=== PATIENT | male | born 1935 | race Two or more races ===

== ENCOUNTER 2019-11-04 02:55 | Inpatient (IN) | payer OTHER ==
[~2019-11-04] VITALS: Ht 167.6 cm; Wt 99.0 kg
[2019-11-04 03:58] LABS: Basophils # (auto) 0.1 10 ^3/uL (0-0.2); Eosinophils # (auto) 0.1 10 ^3/uL (0-0.8); Hematocrit 43.9 % (41.0-53.0); Hemoglobin 13.8 g/dL (13.5-17.5); Monocytes # (auto) 1.6 10 ^3/uL (0-1.3); Nucleated Red Blood Cells % 0.1 %
[2019-11-04 04:00] LABS: Basophils % (auto) 0.4 % (0.0-2.0); Eosinophils % (auto) 0.6 % (0.0-7.0); Lymphocytes # (auto) 1.5 10 ^3/uL (0.4-5.4); Lymphocytes % (auto) 8.4 % (10.0-50.0); Mean Corpuscular Hgb Conc. 31.4 g/dL (32.0-36.0); Mean Corpuscular Volume 82.7 fL (80.0-100.0); Monocytes % (auto) 9.1 % (0.0-12.0); Neutrophils # (auto) 14.7 10 ^3/uL (1.6-8.6); Neutrophils % (auto) 81.5 % (37.0-80.0); Platelet Count (auto) 256 10^3/uL (140-450); Red Blood Cells 5.31 10^6/uL (4.5-5.90); Red Cell Distribution Width 16.2 % (11.8-14.3); White Blood Cell 18.1 10^3/uL (4.4-10.8)
[2019-11-04 04:03] LABS: Amylase 44 U/L (25-115); Anion Gap 6 (5-15); BUN/Creatinine Ratio 16.1; Blood Urea Nitrogen 18 mg/dL (7-18); Calcium 8.9 mg/dL (8.5-10.1); Carbon Dioxide 29 mmol/L (21-32); Chloride 104 mmol/L (98-107); GFR African American 80 mL/min; GFR Non-African American 66 mL/min; Glucose 167 mg/dL (74-106); Lipase 76 U/L (73-393); Magnesium 2.1 mg/dL (1.6-2.6); Potassium 4.1 mmol/L (3.5-5.1); Sodium 139 mmol/L (136-145)
[2019-11-04] MEDS ORDERED: ONDANSETRON HCL 4 MG/2 ML VIAL IV ONE (06:30)
[2019-11-04] MEDS ORDERED: SODIUM CHLORIDE 0.9% 1,000 ML IV ONE (08:16)
[2019-11-04] MEDS ORDERED: SODIUM CHLORIDE 0.9% 500 ML IVB ONE (08:16)
[2019-11-04] MEDS ORDERED: PROMETHAZINE HCL 25 MG/ML 1ML IV PRN (08:30)
[2019-11-04] MEDS ORDERED: HYDROmorphone HCL 2 MG/ML VL IV ONE (08:30)
[2019-11-04 09:26] LABS: Urine Bacteria NONE SEEN /hpf (None Seen); Urine Blood Negative /uL (Negative); Urine Mucus FEW (None Seen); Urine Specific Gravity 1.028 (1.001-1.035); Urine WBC <1 /hpf (0 - 3)
[2019-11-04] MEDS ORDERED: SPIRONOLACTONE 25 MG TAB PO ONE (10:15)
[2019-11-04] MEDS ORDERED: FUROSEMIDE 40 MG/4 ML VIAL IV ONE (10:15)
[2019-11-04] MEDS ORDERED: MORPHINE SULF INJ 2 MG/ML SYRINGE 1ML IV PRN ×3 (10:45)
[2019-11-04] MEDS ORDERED: NITROGLYCERIN 0.4 MG SL TAB SL PRN (10:45)
[2019-11-04] MEDS ORDERED: ALBUTEROL SULF 2.5 MG/0.5ML(0.5%) NEB SOLN NEB PRN (10:45)
[2019-11-04] MEDS ORDERED: DEXTROSE (50%) 50ML SYRG IV PRN (10:45)
[2019-11-04] MEDS ORDERED: FAMOTIDINE (10MG/ML) 2ML VL IV SCH (10:45)
[2019-11-04] MEDS ORDERED: ONDANSETRON HCL 4 MG/2 ML VIAL IV PRN (10:45)
[2019-11-04] MEDS ORDERED: PIPERACILLIN-TAZOB 3.375GM 100 ML IV ONE (11:00)
[2019-11-04] MEDS ORDERED: methylPREDNISolone SOD SUCC 40 MG/ML VL IV SCH (11:30)
[2019-11-04 11:50] LABS: Amylase 43 U/L (25-115); Lipase 80 U/L (73-393)
[2019-11-04] MEDS: SODIUM CHLORIDE 0.9% 1,000 ML IV SCH ×2 (11:52→20:40)
[2019-11-04] MEDS: ACCU-CHEK COMFORT CURVE STRIP VI SCH ×2 (12:00→17:44)
[2019-11-04] MEDS ORDERED: HYDROCORTISONE SOD SUCC 100 MG/2ML INJ VIAL IV ONE (12:30)
[2019-11-04 12:51] VITALS: BP 150/85
[2019-11-04] MEDS ORDERED: ALBUTEROL SULF 2.5 MG/0.5ML(0.5%) NEB SOLN NEB SCH (14:00)
[2019-11-04] MEDS ORDERED: IPRATROPIUM BROM 0.5 MG/2.5ML INH SOL NEB SCH (14:00)
[2019-11-04 16:32] VITALS: BP 157/92
[2019-11-04] MEDS ORDERED: BENA20TA14 PO (17:14)
[2019-11-04] MEDS ORDERED: HYDR-4604 PO (17:14)
[2019-11-04] MEDS ORDERED: PANT40T PO (17:14)
[2019-11-04] MEDS ORDERED: DICL50TA4 PO (17:14)
[2019-11-04] MEDS ORDERED: LEVO112T4 PO (17:14)
[2019-11-04] MEDS ORDERED: ROSU5TAB5 PO (17:14)
[2019-11-04] MEDS: PIPERACILLIN-TAZOB 3.375GM 100 ML IV SCH (17:44)
[2019-11-04] MEDS: HYDROCORTISONE SOD SUCC 100 MG/2ML INJ VIAL IV SCH (21:32)
[2019-11-04 22:00] VITALS: BP 147/82
[2019-11-04] MEDS ORDERED: ALBUTEROL SULF HFA 90MCG INH 200DOSE IN SCH (22:00)
[2019-11-05 05:00] VITALS: BP 162/82
[2019-11-05] MEDS: LABETALOL HCL 5 MG/ML 4ML SYRINGE IV PRN (05:32)
[2019-11-05 06:16] LABS: Calcium 7.7 mg/dL (8.5-10.1)
[2019-11-05 06:19] LABS: BUN/Creatinine Ratio 14.8
[2019-11-05 06:22] LABS: Bilirubin, Total 0.8 mg/dL (0.2-1.0); Total Protein 6.4 g/dL (6.4-8.2)
[2019-11-05] MEDS: ACCU-CHEK COMFORT CURVE STRIP VI SCH ×4 (06:27→17:32)
[2019-11-05] MEDS: PIPERACILLIN-TAZOB 3.375GM 100 ML IV SCH ×4 (06:27→17:31)
[2019-11-05] MEDS: HYDROCORTISONE SOD SUCC 100 MG/2ML INJ VIAL IV SCH ×3 (06:27→22:25)
[2019-11-05] MEDS: SODIUM CHLORIDE 0.9% 1,000 ML IV SCH ×2 (07:08→17:16)
[2019-11-05 08:00] VITALS: BP 160/83
[2019-11-05 09:00] VITALS: BP 160/83
[2019-11-05 10:00] LABS: Basophils # (auto) 0 10 ^3/uL (0-0.2); Basophils % (auto) 0.1 % (0.0-2.0); Eosinophils # (auto) 0 10 ^3/uL (0-0.8); Eosinophils % (auto) 0.1 % (0.0-7.0); Monocytes # (auto) 1.4 10 ^3/uL (0-1.3); Nucleated Red Blood Cells % 0.1 %; Red Blood Cells 4.67 10^6/uL (4.5-5.90)
[2019-11-05] MEDS: AZITHROMYCIN 500MG/ 250ML 250 ML IV SCH (10:00)
[2019-11-05] MEDS: PANTOPRAZOLE 40 MG/10 ML VIAL INJ IV SCH (10:00)
[2019-11-05] MEDS: ENOXAPARIN SOD 40 MG/0.4 ML SYRINGE SC SCH (10:00)
[2019-11-05 10:02] LABS: Hematocrit 38.6 % (41.0-53.0); Hemoglobin 12.1 g/dL (13.5-17.5); Lymphocytes # (auto) 0.8 10 ^3/uL (0.4-5.4); Lymphocytes % (auto) 4.6 % (10.0-50.0); Mean Corpuscular Hemoglobin 25.8 pg (28.0-32.0); Mean Corpuscular Hgb Conc. 31.2 g/dL (32.0-36.0); Mean Corpuscular Volume 82.8 fL (80.0-100.0); Monocytes % (auto) 8.6 % (0.0-12.0); Neutrophils # (auto) 14.1 10 ^3/uL (1.6-8.6); Neutrophils % (auto) 86.6 % (37.0-80.0); Platelet Count (auto) 194 10^3/uL (140-450); Red Cell Distribution Width 15.8 % (11.8-14.3); White Blood Cell 16.3 10^3/uL (4.4-10.8)
[2019-11-05] MEDS ORDERED: GASTROGRAFIN 120 ML SOL ONE (10:08)
[2019-11-05 13:00] VITALS: BP 108/53
[2019-11-05 17:00] VITALS: BP 153/84
[2019-11-05 22:00] VITALS: BP 157/77
[2019-11-06] VITALS (7 sets, daily range): BP systolic 140–168; BP diastolic 78–99
[2019-11-06] MEDS: SODIUM CHLORIDE 0.9% 1,000 ML IV SCH (02:40)
[2019-11-06] MEDS: LABETALOL HCL 5 MG/ML 4ML SYRINGE IV PRN (05:17)
[2019-11-06] MEDS: PIPERACILLIN-TAZOB 3.375GM 100 ML IV SCH ×4 (05:55→18:03)
[2019-11-06] MEDS: ACCU-CHEK COMFORT CURVE STRIP VI SCH ×4 (05:55→18:03)
[2019-11-06] MEDS: HYDROCORTISONE SOD SUCC 100 MG/2ML INJ VIAL IV SCH ×2 (05:55→14:22)
[2019-11-06] MEDS: PANTOPRAZOLE 40 MG/10 ML VIAL INJ IV SCH (09:59)
[2019-11-06] MEDS: AZITHROMYCIN 500MG/ 250ML 250 ML IV SCH (09:59)
[2019-11-06] MEDS: ENOXAPARIN SOD 40 MG/0.4 ML SYRINGE SC SCH (10:00)
[2019-11-06 10:21] LABS: Free T4 (Free Thyroxine) 1.27 ng/dL (0.89-1.76)
[2019-11-06 10:22] LABS: Free T3 1.82 pg/mL (2.3-4.2)
[2019-11-06 11:25] LABS: Basophils # (auto) 0 10 ^3/uL (0-0.2); Basophils % (auto) 0.2 % (0.0-2.0); Eosinophils # (auto) 0 10 ^3/uL (0-0.8); Eosinophils % (auto) 0.1 % (0.0-7.0); Lymphocytes # (auto) 0.8 10 ^3/uL (0.4-5.4); Mean Corpuscular Hemoglobin 25.9 pg (28.0-32.0)
[2019-11-06 11:34] LABS: Hematocrit 38.2 % (41.0-53.0); Hemoglobin 11.9 g/dL (13.5-17.5); Lymphocytes % (auto) 6.4 % (10.0-50.0); Mean Corpuscular Hgb Conc. 31.2 g/dL (32.0-36.0); Monocytes % (auto) 8.7 % (0.0-12.0); Neutrophils % (auto) 84.6 % (37.0-80.0); Platelet Count (auto) 212 10^3/uL (140-450); Red Cell Distribution Width 16.3 % (11.8-14.3); White Blood Cell 11.8 10^3/uL (4.4-10.8)
[2019-11-06 11:45] LABS: Calcium 8.1 mg/dL (8.5-10.1); Potassium 3.7 mmol/L (3.5-5.1)
[2019-11-06 11:47] LABS: BUN/Creatinine Ratio 15.3
[2019-11-06] MEDS: cefTRIAXone 1GM/50ML D5W 50 ML IV SCH (23:03)
[2019-11-06] MEDS: metroNIDAZOLE 500MG/100ML 100 ML IV SCH (23:04)
[2019-11-07] MEDS: ACCU-CHEK COMFORT CURVE STRIP VI SCH ×5 (00:59→23:50)
[2019-11-07 05:00] VITALS: BP 144/63
[2019-11-07] MEDS: metroNIDAZOLE 500MG/100ML 100 ML IV SCH ×3 (05:56→22:12)
[2019-11-07 08:00] VITALS: BP 159/83
[2019-11-07] MEDS: cefTRIAXone 1GM/50ML D5W 50 ML IV SCH ×2 (09:09→21:06)
[2019-11-07] MEDS: PANTOPRAZOLE 40 MG/10 ML VIAL INJ IV SCH (09:10)
[2019-11-07] MEDS: HYDROCORTISONE SOD SUCC 100 MG/2ML INJ VIAL IV SCH ×2 (09:10→22:12)
[2019-11-07] MEDS: TAMSULOSIN HYDROCHLORIDE 0.4 MG CAP PO SCH (09:11)
[2019-11-07] MEDS: ENOXAPARIN SOD 40 MG/0.4 ML SYRINGE SC SCH (09:11)
[2019-11-07 09:26] VITALS: BP 159/83
[2019-11-07] MEDS: LABETALOL HCL 5 MG/ML 4ML SYRINGE IV PRN (12:17)
[2019-11-07 13:00] VITALS: BP 188/95
[2019-11-07 16:50] VITALS: BP 133/79
[2019-11-07 22:00] VITALS: BP 149/82
[2019-11-08 04:30] VITALS: BP 164/88
[2019-11-08] MEDS: LABETALOL HCL 5 MG/ML 4ML SYRINGE IV PRN ×2 (04:35→06:43)
[2019-11-08 06:20] LABS: BUN/Creatinine Ratio 14.4; Calcium 8.2 mg/dL (8.5-10.1); Potassium 3.8 mmol/L (3.5-5.1)
[2019-11-08] MEDS: ACCU-CHEK COMFORT CURVE STRIP VI SCH (06:37)
[2019-11-08] MEDS: metroNIDAZOLE 500MG/100ML 100 ML IV SCH (06:37)
[2019-11-08 06:47] LABS: Hematocrit 38.9 % (41.0-53.0); Hemoglobin 12.4 g/dL (13.5-17.5); Mean Corpuscular Hemoglobin 26.3 pg (28.0-32.0); Mean Corpuscular Volume 82.3 fL (80.0-100.0); Platelet Count (auto) 233 10^3/uL (140-450); Red Blood Cells 4.72 10^6/uL (4.5-5.90); Red Cell Distribution Width 15.8 % (11.8-14.3); White Blood Cell 9.9 10^3/uL (4.4-10.8)
[2019-11-08 07:03] LABS: Band Neutrophils % (manual) 0; Basophils % (manual) 0 (0.0-2.0); Blast Cells 0; Eosinophils % (manual) 0 (0-7); Metamyelocytes % 0; Myelocytes % 0; Promyelocytes % 0; Reactive Lymphocytes 0
[2019-11-08 07:38] LABS: Lymphocytes % (manual) 16 (10.0-50.0); Monocytes % (manual) 9 (0-12)
[2019-11-08 08:00] VITALS: BP 159/82
[2019-11-08 09:00] VITALS: BP 159/82
[2019-11-08] MEDS: PANTOPRAZOLE 40 MG/10 ML VIAL INJ IV SCH (11:05)
[2019-11-08] MEDS: TAMSULOSIN HYDROCHLORIDE 0.4 MG CAP PO SCH (11:05)
[2019-11-08] MEDS: HYDROCORTISONE SOD SUCC 100 MG/2ML INJ VIAL IV SCH (11:05)
[2019-11-08] MEDS: cefTRIAXone 1GM/50ML D5W 50 ML IV SCH (11:05)
[2019-11-08] MEDS: ENOXAPARIN SOD 40 MG/0.4 ML SYRINGE SC SCH (11:06)
[2019-11-08] MEDS ORDERED: TAM04C PO (11:32)
[2019-11-08] MEDS ORDERED: AMLO10TA13 PO (11:32)
[2019-11-08] MEDS ORDERED: METR500T PO (11:33)
[2019-11-08 13:00] VITALS: BP 174/76
[2019-11-08 14:29] VITALS: BP 159/82
== END 2019-11-08 15:45 | disposition home or self-care (01) | DRG 389 ==
LOC: ER 02:55 → TELE 05:56 → TELE-EAST 16:30 → TELE-CENTR 18:08
PROVIDERS: ADMIT Internal Medicine; ATTEND Internal Medicine Nephrology
DX: K56.600 Partial intestinal obstruction, unspecified as to cause (principal); J98.11 Atelectasis; R65.10 Systemic inflammatory response syndrome (SIRS) of non-infectious origin without acute organ dysfunction; I16.0 Hypertensive urgency; N20.0 Calculus of kidney; I71.4 Abdominal aortic aneurysm, without rupture; E66.9 Obesity, unspecified; R73.9 Hyperglycemia, unspecified; M51.36 Other intervertebral disc degeneration, lumbar region; D49.7 Neoplasm of unspecified behavior of endocrine glands and other parts of nervous system; E03.9 Hypothyroidism, unspecified; Z20.828 Contact with and (suspected) exposure to other viral communicable diseases; E78.5 Hyperlipidemia, unspecified; I25.10 Atherosclerotic heart disease of native coronary artery without angina pectoris; K57.30 Diverticulosis of large intestine without perforation or abscess without bleeding; M47.816 Spondylosis without myelopathy or radiculopathy, lumbar region; Z87.11 Personal history of peptic ulcer disease; Z87.442 Personal history of urinary calculi; Z95.5 Presence of coronary angioplasty implant and graft; Z68.34 Body mass index [BMI] 34.0-34.9, adult; N32.89 Other specified disorders of bladder
CPT/HCPCS: 36415; 71045; 74176; 74250; 80048; 80053; 81001; 82150; 82962; 83036; 83690; 83735; 83970; 84439; 84443; 84481; 84484; 85007; 85025; 85027; 85652; 87040; 87086; 93005; 94640; 96361; 96365; 96375; C9113; G0378; J0696; J2405; J2543; J3490

== ENCOUNTER 2021-05-24 19:48 | Emergency (ER) | payer OTHER ==
[~2021-05-24] VITALS: Ht 167.6 cm; Wt 95.3 kg
[~2021-05-24 19:48] MED LIST: AMLO-496 PO; BENA20TA14 PO; HYDR-4622 PO; LEVO112T4 PO; METR500T PO; PANT40T PO; ROSU5TAB5 PO; TAM04C PO
[2021-05-24 19:50] VITALS: BP 193/91
[2021-05-24 22:11] LABS: Basophils # (auto) 0 10 ^3/uL (0-0.2); Basophils % (auto) 0.4 % (0.0-2.0); Eosinophils # (auto) 0 10 ^3/uL (0-0.8); Eosinophils % (auto) 0.4 % (0.0-7.0); Hematocrit 42.7 % (41.0-53.0); Hemoglobin 14.1 g/dL (13.5-17.5); Lymphocytes % (auto) 13.4 % (10.0-50.0); Mean Corpuscular Hemoglobin 29.1 pg (28.0-32.0); Monocytes # (auto) 1.3 10 ^3/uL (0-1.3); Monocytes % (auto) 17.6 % (0.0-12.0); Neutrophils # (auto) 5.1 10 ^3/uL (1.6-8.6); Neutrophils % (auto) 68.2 % (37.0-80.0); Red Blood Cells 4.86 10^6/uL (4.5-5.90); Red Cell Distribution Width 16.1 % (11.8-14.3); White Blood Cell 7.5 10^3/uL (4.4-10.8)
[2021-05-24 22:30] LABS: Albumin 3.6 g/dL (3.4-5.0); Calcium 8.4 mg/dL (8.5-10.1); Magnesium 2.5 mg/dL (1.6-2.6); Potassium 3.6 mmol/L (3.5-5.1)
[2021-05-24 22:39] LABS: BUN/Creatinine Ratio 11.4; Bilirubin, Total 0.8 mg/dL (0.2-1.0); Total Protein 6.6 g/dL (6.4-8.2)
== END 2021-05-25 02:51 | disposition home or self-care (01) ==
LOC: ER 19:51
DX: R07.89 Other chest pain (principal); Z20.822 Contact with and (suspected) exposure to COVID-19
CPT/HCPCS: 36415; 71045; 80053; 83735; 84443; 84484; 85025; 87426; 93005

== ENCOUNTER 2021-06-03 13:16 | Inpatient (IN) | payer OTHER ==
[~2021-06-03] VITALS: Ht 167.6 cm; Wt 92.0 kg
[~2021-06-03 13:16] MED LIST changes: +PIPERACILLIN-TAZOB 3.375GM 100 ML IV SCH
[2021-06-03 14:06] LABS: Basophils # (auto) 0.1 10 ^3/uL (0-0.2); Basophils % (auto) 0.5 % (0.0-2.0); Eosinophils # (auto) 0.1 10 ^3/uL (0-0.8); Eosinophils % (auto) 0.7 % (0.0-7.0); Hemoglobin 13.9 g/dL (13.5-17.5); Lymphocytes # (auto) 2.1 10 ^3/uL (0.4-5.4); Lymphocytes % (auto) 16.3 % (10.0-50.0); Mean Corpuscular Hemoglobin 28.6 pg (28.0-32.0); Mean Corpuscular Hgb Conc. 33.8 g/dL (32.0-36.0); Mean Corpuscular Volume 84.8 fL (80.0-100.0); Monocytes % (auto) 15.9 % (0.0-12.0); Neutrophils # (auto) 8.4 10 ^3/uL (1.6-8.6); Neutrophils % (auto) 66.6 % (37.0-80.0); Nucleated Red Blood Cells % 0.1 %; Red Blood Cells 4.84 10^6/uL (4.5-5.90); Red Cell Distribution Width 15.6 % (11.8-14.3); White Blood Cell 12.6 10^3/uL (4.4-10.8)
[2021-06-03 14:19] LABS: INR 1.44 (0.9-1.15); Partial Thromboplastin Time 36.5 sec (23.6-33.0)
[2021-06-03 14:20] LABS: Lactic Acid w/Reflex 5.4 mmol/L (0.4-2.0); Potassium 3.4 mmol/L (3.5-5.1)
[2021-06-03 14:43] LABS: Albumin 3.1 g/dL (3.4-5.0); BUN/Creatinine Ratio 6.7; Bilirubin, Total 1.9 mg/dL (0.2-1.0); Calcium 8.5 mg/dL (8.5-10.1); Magnesium 2.5 mg/dL (1.6-2.6)
[2021-06-03] MEDS ORDERED: SODIUM CHLORIDE 0.9% 500 ML IV ONE (14:45)
[2021-06-03] MEDS ORDERED: ACETAMINOPHEN 325 MG TAB PO ONE (18:00)
[2021-06-03] MEDS ORDERED: cefTRIAXone 1GM/50ML D5W 50 ML IV ONE (19:00)
[2021-06-03] MEDS ORDERED: AZITHROMYCIN 250 MG TAB PO ONE (19:00)
[2021-06-03] MEDS ORDERED: AZITHROMYCIN 500MG/ 250ML 250 ML IV ONE (19:30)
[2021-06-03] MEDS ORDERED: VANCOMYCIN PER PHARMACY 0 MG IV SCH (21:15)
[2021-06-03] MEDS ORDERED: DEXTROSE (50%) 50ML SYRG IV PRN (21:15)
[2021-06-03] MEDS ORDERED: SODIUM CHLORIDE 0.9% 1,000 ML IV ONE ×2 (21:15→21:45)
[2021-06-03] MEDS ORDERED: MORPHINE SULFATE INJECTION 2 MG/ML SYRG IV PRN (21:15)
[2021-06-03] MEDS ORDERED: NITROGLYCERIN 0.4 MG SL TAB SL PRN (21:15)
[2021-06-03 21:34] LABS: Urine Bacteria NONE SEEN /hpf (None Seen); Urine Blood Negative /uL (Negative); Urine Hyaline Cast MOD /lpf (0 - 2); Urine Mucus FEW (None Seen); Urine Specific Gravity 1.022 (1.001-1.035); Urine WBC 3 /hpf (0 - 3)
[2021-06-03] MEDS ORDERED: PIPERACILLIN-TAZOB 3.375GM 100 ML IV ONE ×3 (21:45→22:00)
[2021-06-03] MEDS ORDERED: VANCOMYCIN 1GM/250ML 250 ML IV ONE ×3 (22:00→23:00)
[2021-06-03] MEDS: ACCU-CHEK COMFORT CURVE STRIP VI SCH (22:41)
[2021-06-03] MEDS: InsuLIN REG 1unit/0.01ml Soln (100units/ml) SC SCH (22:45)
[2021-06-04] MEDS: PIPERACILLIN-TAZOB 3.375GM 100 ML IV SCH ×4 (05:49→17:34)
[2021-06-04] MEDS: InsuLIN REG 1unit/0.01ml Soln (100units/ml) SC SCH ×4 (06:32→22:44)
[2021-06-04] MEDS: ACCU-CHEK COMFORT CURVE STRIP VI SCH ×4 (06:32→22:45)
[2021-06-04 07:36] LABS: Basophils # (auto) 0 10 ^3/uL (0-0.2); Basophils % (auto) 0.2 % (0.0-2.0); Eosinophils # (auto) 0.1 10 ^3/uL (0-0.8); Eosinophils % (auto) 1.3 % (0.0-7.0); Hematocrit 35.8 % (41.0-53.0); Hemoglobin 12.7 g/dL (13.5-17.5); Lymphocytes # (auto) 0.9 10 ^3/uL (0.4-5.4); Lymphocytes % (auto) 9.2 % (10.0-50.0); Mean Corpuscular Hemoglobin 29.6 pg (28.0-32.0); Mean Corpuscular Hgb Conc. 35.5 g/dL (32.0-36.0); Mean Corpuscular Volume 83.5 fL (80.0-100.0); Monocytes # (auto) 1.4 10 ^3/uL (0-1.3); Monocytes % (auto) 14.6 % (0.0-12.0); Neutrophils % (auto) 74.7 % (37.0-80.0); Nucleated Red Blood Cells % 0.1 %; Red Blood Cells 4.29 10^6/uL (4.5-5.90); Red Cell Distribution Width 16.1 % (11.8-14.3); White Blood Cell 9.4 10^3/uL (4.4-10.8)
[2021-06-04 08:27] LABS: Albumin 2.4 g/dL (3.4-5.0); Calcium 7.5 mg/dL (8.5-10.1); Potassium 3.3 mmol/L (3.5-5.1)
[2021-06-04 08:29] LABS: BUN/Creatinine Ratio 8.8
[2021-06-04 08:32] LABS: Bilirubin, Total 1.2 mg/dL (0.2-1.0); Total Protein 5.6 g/dL (6.4-8.2)
[2021-06-04] MEDS ORDERED: VANCOMYCIN 1GM/250ML 250 ML IV ONE (11:15)
[2021-06-04] MEDS ORDERED: DexAMETHasone INJECTION 10 MG in D5W 5% 50 ML IV ONE (13:30)
[2021-06-04] MEDS ORDERED: LEVOTHYROXINE SODIUM 25 MCG TAB PO ONE (14:00)
[2021-06-04] MEDS ORDERED: DexAMETHasone SOD PHOS 10MG/1ML VIAL INJ IV SCH (14:00)
[2021-06-04] MEDS: HYDROCORTISONE SOD SUCC 100 MG/2ML INJ VIAL IV SCH ×2 (14:07→22:45)
[2021-06-05] MEDS: HYDROCORTISONE SOD SUCC 100 MG/2ML INJ VIAL IV SCH ×3 (06:35→23:09)
[2021-06-05] MEDS: PIPERACILLIN-TAZOB 3.375GM 100 ML IV SCH ×3 (06:35→18:29)
[2021-06-05] MEDS: ACCU-CHEK COMFORT CURVE STRIP VI SCH ×4 (07:08→23:13)
[2021-06-05] MEDS: InsuLIN REG 1unit/0.01ml Soln (100units/ml) SC SCH ×4 (07:09→23:16)
[2021-06-05] MEDS: LEVOTHYROXINE SODIUM 25 MCG TAB PO SCH (07:55)
[2021-06-05] MEDS ORDERED: DexAMETHasone INJECTION 10 MG in D5W 5% 50 ML IV SCH (10:00)
[2021-06-05] MEDS ORDERED: DexAMETHasone SOD PHOS 10MG/1ML VIAL INJ IV SCH (10:00)
[2021-06-05] MEDS: PANTOPRAZOLE 40 MG TAB PO SCH (11:02)
[2021-06-05] MEDS: VANCOMYCIN 1GM/250ML 250 ML IV SCH (11:21)
[2021-06-05 12:02] LABS: Potassium 3.9 mmol/L (3.5-5.1)
[2021-06-05 12:08] LABS: BUN/Creatinine Ratio 10.5; Calcium 7.5 mg/dL (8.5-10.1)
[2021-06-05] MEDS ORDERED: SODIUM CHLORIDE 0.9% 1,000 ML IV ONE (18:45)
[2021-06-06] MEDS: PIPERACILLIN-TAZOB 3.375GM 100 ML IV SCH ×2 (00:40→05:42)
[2021-06-06 03:01] VITALS: BP 142/80
[2021-06-06 05:00] VITALS: BP 145/83
[2021-06-06] MEDS: HYDROCORTISONE SOD SUCC 100 MG/2ML INJ VIAL IV SCH (05:42)
[2021-06-06] MEDS: LEVOTHYROXINE SODIUM 25 MCG TAB PO SCH (06:19)
[2021-06-06] MEDS: ACCU-CHEK COMFORT CURVE STRIP VI SCH ×4 (06:19→22:03)
[2021-06-06] MEDS: InsuLIN REG 1unit/0.01ml Soln (100units/ml) SC SCH ×4 (06:28→22:00)
[2021-06-06 06:57] LABS: Albumin 1.1 g/dL (3.4-5.0); Potassium 4.4 mmol/L (3.5-5.1)
[2021-06-06 07:01] LABS: BUN/Creatinine Ratio 35.4; Bilirubin, Total 2.6 mg/dL (0.2-1.0); Total Protein 4.8 g/dL (6.4-8.2)
[2021-06-06 07:22] LABS: Calcium 5.9 mg/dL (8.5-10.1)
[2021-06-06] MEDS ORDERED: MORPHINE SULFATE INJECTION 2 MG/ML SYRG IV PRN ×2 (07:45)
[2021-06-06] MEDS ORDERED: NITROGLYCERIN 0.4 MG SL TAB SL PRN ×2 (07:45)
[2021-06-06 09:00] VITALS: BP 140/76
[2021-06-06] MEDS: SOD CHL 0.45% 1,000 ML IV SCH ×2 (09:15→22:13)
[2021-06-06] MEDS: PANTOPRAZOLE 40 MG TAB PO SCH (09:45)
[2021-06-06] MEDS: VANCOMYCIN 1GM/250ML 250 ML IV SCH (09:46)
[2021-06-06] MEDS: HEPARIN SODIUM (PORCINE) 5000 UNITS/ML 1ML VIAL SC SCH ×2 (09:58→22:02)
[2021-06-06] MEDS: DexAMETHasone SOD PHOS 10MG/1ML VIAL INJ IV SCH (09:58)
[2021-06-06 10:53] LABS: Hematocrit 33.6 % (41.0-53.0); Hemoglobin 11.7 g/dL (13.5-17.5); Mean Corpuscular Hemoglobin 28.8 pg (28.0-32.0); Mean Corpuscular Hgb Conc. 34.8 g/dL (32.0-36.0); Mean Corpuscular Volume 82.8 fL (80.0-100.0); Red Blood Cells 4.05 10^6/uL (4.5-5.90); Red Cell Distribution Width 15.7 % (11.8-14.3); White Blood Cell 20.1 10^3/uL (4.4-10.8)
[2021-06-06 11:19] LABS: Basophils % (manual) 0 (0.0-2.0); Blast Cells 0; Eosinophils % (manual) 0 (0-7); Lymphocytes % (manual) 0 (10.0-50.0); Metamyelocytes % 0; Myelocytes % 0; Promyelocytes % 0; Reactive Lymphocytes 0
[2021-06-06] MEDS ORDERED: PIPERACILLIN-TAZOB 2.25GM 50 ML IV SCH (12:00)
[2021-06-06] MEDS ORDERED: REMDESIVIR PER PHARMACY 0 ML IV SCH (12:15)
[2021-06-06 12:39] LABS: Band Neutrophils % (manual) 6; Monocytes % (manual) 4 (0-12)
[2021-06-06 13:33] VITALS: BP 136/90
[2021-06-06 17:33] VITALS: BP 142/89
[2021-06-06] MEDS ORDERED: FUROSEMIDE 40 MG/4 ML VIAL IV ONE (20:00)
[2021-06-06 22:00] VITALS: BP 133/87
[2021-06-06] MEDS: INSULIN LANTUS (GLARGINE) 1 /0.01ml (100units/ml) SC SCH (22:02)
[2021-06-06] MEDS: LINEZOLID 600MG/300ML 300 ML IV SCH (22:03)
[2021-06-07 05:00] VITALS: BP 147/75
[2021-06-07] MEDS: SOD CHL 0.45% 1,000 ML IV SCH ×2 (05:15→15:15)
[2021-06-07] MEDS: LEVOTHYROXINE SODIUM 25 MCG TAB PO SCH (05:50)
[2021-06-07] MEDS: InsuLIN REG 1unit/0.01ml Soln (100units/ml) SC SCH ×4 (05:52→22:47)
[2021-06-07] MEDS: ACCU-CHEK COMFORT CURVE STRIP VI SCH ×4 (05:58→22:00)
[2021-06-07 07:10] LABS: Hematocrit 34.1 % (41.0-53.0); Hemoglobin 11.6 g/dL (13.5-17.5); Mean Corpuscular Hemoglobin 28.2 pg (28.0-32.0); White Blood Cell 17.4 10^3/uL (4.4-10.8)
[2021-06-07 07:24] LABS: Potassium 3.3 mmol/L (3.5-5.1)
[2021-06-07 07:34] LABS: Albumin 2.4 g/dL (3.4-5.0); Bilirubin, Total 0.6 mg/dL (0.2-1.0); Calcium 7.4 mg/dL (8.5-10.1); Total Protein 5.2 g/dL (6.4-8.2)
[2021-06-07 07:45] LABS: Basophils % (manual) 0 (0.0-2.0); Blast Cells 0; Eosinophils % (manual) 0 (0-7); Metamyelocytes % 0; Promyelocytes % 0; Reactive Lymphocytes 0
[2021-06-07 09:00] VITALS: BP 132/88
[2021-06-07] MEDS: PANTOPRAZOLE 40 MG TAB PO SCH (10:00)
[2021-06-07] MEDS: DexAMETHasone SOD PHOS 10MG/1ML VIAL INJ IV SCH (10:00)
[2021-06-07] MEDS: LINEZOLID 600MG/300ML 300 ML IV SCH ×2 (10:00→22:44)
[2021-06-07] MEDS: HEPARIN SODIUM (PORCINE) 5000 UNITS/ML 1ML VIAL SC SCH ×2 (10:00→22:46)
[2021-06-07 12:16] LABS: Band Neutrophils % (manual) 3; Lymphocytes % (manual) 2 (10.0-50.0); Monocytes % (manual) 2 (0-12); Myelocytes % 2
[2021-06-07 12:46] VITALS: BP 134/86
[2021-06-07] MEDS ORDERED: ALPRAZolam 0.25 MG TAB PO PRN (15:30)
[2021-06-07 16:36] VITALS: BP 153/94
[2021-06-07 21:37] VITALS: BP 141/83
[2021-06-07] MEDS: INSULIN LANTUS (GLARGINE) 1 /0.01ml (100units/ml) SC SCH (22:48)
[2021-06-08] MEDS ORDERED: LORazepam 2MG/ML-1ML VIAL IV ONE (00:30)
[2021-06-08] MEDS: SOD CHL 0.45% 1,000 ML IV SCH ×3 (03:31→20:44)
[2021-06-08 04:48] VITALS: BP 136/78
[2021-06-08] MEDS: InsuLIN REG 1unit/0.01ml Soln (100units/ml) SC SCH ×4 (07:10→21:45)
[2021-06-08] MEDS: LEVOTHYROXINE SODIUM 25 MCG TAB PO SCH (07:13)
[2021-06-08] MEDS: ACCU-CHEK COMFORT CURVE STRIP VI SCH ×4 (07:13→21:47)
[2021-06-08 07:39] LABS: Hematocrit 34.5 % (41.0-53.0); Mean Corpuscular Hemoglobin 28.8 pg (28.0-32.0); Mean Corpuscular Hgb Conc. 34.8 g/dL (32.0-36.0); Mean Corpuscular Volume 82.9 fL (80.0-100.0); Red Blood Cells 4.17 10^6/uL (4.5-5.90); Red Cell Distribution Width 15.8 % (11.8-14.3); White Blood Cell 17.4 10^3/uL (4.4-10.8)
[2021-06-08 07:44] LABS: Albumin 2.6 g/dL (3.4-5.0); Calcium 7.5 mg/dL (8.5-10.1); Potassium 3.2 mmol/L (3.5-5.1)
[2021-06-08 07:48] LABS: BUN/Creatinine Ratio 14.5; Bilirubin, Total 0.6 mg/dL (0.2-1.0); Total Protein 5.6 g/dL (6.4-8.2)
[2021-06-08 08:18] LABS: Basophils % (manual) 0 (0.0-2.0); Blast Cells 0; Eosinophils % (manual) 0 (0-7); Metamyelocytes % 0; Promyelocytes % 0; Reactive Lymphocytes 0
[2021-06-08 09:00] VITALS: BP 161/82
[2021-06-08] MEDS: PANTOPRAZOLE 40 MG TAB PO SCH (10:00)
[2021-06-08] MEDS: DexAMETHasone SOD PHOS 10MG/1ML VIAL INJ IV SCH (10:00)
[2021-06-08] MEDS: LINEZOLID 600MG/300ML 300 ML IV SCH ×2 (10:00→21:47)
[2021-06-08] MEDS: HEPARIN SODIUM (PORCINE) 5000 UNITS/ML 1ML VIAL SC SCH ×2 (10:00→21:46)
[2021-06-08 12:47] LABS: Band Neutrophils % (manual) 1; Lymphocytes % (manual) 4 (10.0-50.0); Monocytes % (manual) 5 (0-12); Myelocytes % 1
[2021-06-08 13:00] VITALS: BP 142/73
[2021-06-08] MEDS ORDERED: POTASSIUM CHL 20 Meq TABLET PO ONE (15:15)
[2021-06-08] MEDS ORDERED: POTASSIUM EFFERVESENT TAB 25 MEQ PO ONE (15:30)
[2021-06-08 17:00] VITALS: BP 158/99
[2021-06-08] MEDS: INSULIN LANTUS (GLARGINE) 1 /0.01ml (100units/ml) SC SCH (21:46)
[2021-06-08 22:00] VITALS: BP 163/87
[2021-06-09 05:00] VITALS: BP 155/60
[2021-06-09] MEDS: LEVOTHYROXINE SODIUM 25 MCG TAB PO SCH (06:34)
[2021-06-09] MEDS: InsuLIN REG 1unit/0.01ml Soln (100units/ml) SC SCH ×3 (06:34→18:02)
[2021-06-09] MEDS: ACCU-CHEK COMFORT CURVE STRIP VI SCH ×3 (06:34→17:47)
[2021-06-09 09:00] VITALS: BP 133/85
[2021-06-09] MEDS: SOD CHL 0.45% 1,000 ML IV SCH ×2 (10:07→17:15)
[2021-06-09] MEDS: LINEZOLID 600MG/300ML 300 ML IV SCH (10:08)
[2021-06-09] MEDS: HEPARIN SODIUM (PORCINE) 5000 UNITS/ML 1ML VIAL SC SCH (10:08)
[2021-06-09] MEDS: DexAMETHasone SOD PHOS 10MG/1ML VIAL INJ IV SCH (10:08)
[2021-06-09] MEDS: PANTOPRAZOLE 40 MG TAB PO SCH (10:08)
[2021-06-09 10:21] LABS: Albumin 2.6 g/dL (3.4-5.0); Calcium 7.3 mg/dL (8.5-10.1)
[2021-06-09 10:25] LABS: BUN/Creatinine Ratio 14.8; Bilirubin, Total 0.6 mg/dL (0.2-1.0); Total Protein 5.6 g/dL (6.4-8.2)
[2021-06-09 10:46] LABS: Hematocrit 34.8 % (41.0-53.0); Mean Corpuscular Hgb Conc. 34.6 g/dL (32.0-36.0); Mean Corpuscular Volume 83.8 fL (80.0-100.0); Red Blood Cells 4.16 10^6/uL (4.5-5.90); Red Cell Distribution Width 16.1 % (11.8-14.3); White Blood Cell 13.3 10^3/uL (4.4-10.8)
[2021-06-09 10:48] LABS: Basophils % (manual) 0 (0.0-2.0); Blast Cells 0; Metamyelocytes % 0; Myelocytes % 0; Promyelocytes % 0; Reactive Lymphocytes 0
[2021-06-09] MEDS ORDERED: ALBUAER3 IN (11:09)
[2021-06-09] MEDS ORDERED: CHOL1CAP47 PO (11:09)
[2021-06-09] MEDS ORDERED: ASCO500T11 PO (11:09)
[2021-06-09] MEDS ORDERED: ZINC220C8 PO (11:09)
[2021-06-09] MEDS ORDERED: LINE1TAB6 PO (11:09)
[2021-06-09] MEDS ORDERED: IPRA0.00 IN (11:37)
[2021-06-09] MEDS ORDERED: LEVO750T8 PO (11:41)
[2021-06-09] MEDS ORDERED: cefTRIAXone 1GM/50ML D5W 50 ML IV ONE (11:45)
[2021-06-09] MEDS ORDERED: LEVO-28 PO (11:48)
[2021-06-09 13:00] VITALS: BP 155/102
[2021-06-09 13:27] LABS: Potassium 2.7 mmol/L (3.5-5.1)
[2021-06-09] MEDS ORDERED: POTASSIUM CHL 20MEQ/50ML 50 ML IV ONE ×2 (13:45→17:00)
[2021-06-09 14:44] LABS: Creatinine, Urine 50 mg/dL (30.0-125.0); Protein, Urine 10.8 mg/dL (0.0-11.9); Sodium Urine 58 mmol/L (40-220)
[2021-06-09 16:16] VITALS: BP 133/87
[2021-06-09 16:50] LABS: Band Neutrophils % (manual) 1; Eosinophils % (manual) 1 (0-7); Lymphocytes % (manual) 14 (10.0-50.0); Monocytes % (manual) 4 (0-12)
[2021-06-09 17:00] VITALS: BP 155/96
[2021-06-09] MEDS ORDERED: TAMSULOSIN HYDROCHLORIDE 0.4 MG CAP PO SCH (18:00)
[2021-06-09] MEDS ORDERED: metroNIDAZOLE 500 MG TAB PO SCH (22:00)
[2021-06-09] MEDS ORDERED: ATORVASTATIN 20 MG TAB PO SCH (22:00)
[2021-06-10] MEDS ORDERED: LEVOTHYROXINE SODIUM 112 MCG TAB PO SCH (07:00)
[2021-06-10] MEDS ORDERED: HYDROCORTISONE 10 MG TAB PO SCH (08:00)
[2021-06-10] MEDS ORDERED: cefTRIAXone 1GM/50ML D5W 50 ML IV SCH (09:00)
[2021-06-10] MEDS ORDERED: BENAZEPRIL HCL 10 MG TAB PO SCH (10:00)
[2021-06-10] MEDS ORDERED: amLODIPine BESYLATE 5 MG TAB PO SCH (10:00)
[2021-06-10] MEDS ORDERED: PANTOPRAZOLE 40 MG TAB PO SCH (10:00)
== END 2021-06-09 18:18 | disposition home health service (06) | DRG 871 ==
LOC: ER 13:16 → TELE 21:01 → TELE-E-ADS 06-06 03:01 → OBSVTOIN 06-06 11:01 → TELE-E-ADS 06-06 23:15
PROVIDERS: ADMIT Internal Medicine; ATTEND Internal Medicine
DX: A41.9 Sepsis, unspecified organism (principal); U07.1 COVID-19; J96.01 Acute respiratory failure with hypoxia; J12.82 Pneumonia due to coronavirus disease 2019; G93.40 Encephalopathy, unspecified; N17.9 Acute kidney failure, unspecified; E23.0 Hypopituitarism; D49.0 Neoplasm of unspecified behavior of digestive system; E11.22 Type 2 diabetes mellitus with diabetic chronic kidney disease; F02.80 Dementia in other diseases classified elsewhere, unspecified severity, without behavioral disturbance, psychotic disturbance, mood disturbance, and anxiety; G30.9 Alzheimer's disease, unspecified; I12.9 Hypertensive chronic kidney disease with stage 1 through stage 4 chronic kidney disease, or unspecified chronic kidney disease; I25.10 Atherosclerotic heart disease of native coronary artery without angina pectoris; I95.9 Hypotension, unspecified; I71.4 Abdominal aortic aneurysm, without rupture; K76.9 Liver disease, unspecified; K82.8 Other specified diseases of gallbladder; N18.2 Chronic kidney disease, stage 2 (mild); B95.8 Unspecified staphylococcus as the cause of diseases classified elsewhere; Z68.32 Body mass index [BMI] 32.0-32.9, adult; Z87.442 Personal history of urinary calculi; Z95.5 Presence of coronary angioplasty implant and graft
CPT/HCPCS: 36415; 36600; 70450; 71045; 71250; 74176; 76775; 80048; 80053; 80202; 81001; 82306; 82570; 82805; 82962; 83605; 83735; 83970; 84100; 84156; 84300; 84443; 84484; 85007; 85025; 85027; 85610; 85730; 87040; 87077; 87186; 87426; 87804; 92610; 93005; 93306; 96361; 96365; 97163; G0378; J0696; J1100; J1815; J2543; J7060

== ENCOUNTER 2022-01-07 23:27 | Inpatient (IN) | payer OTHER ==
[~2022-01-07] VITALS: Ht 175.3 cm; Wt 89.1 kg
[~2022-01-07 23:27] MED LIST changes: +ALBUAER3 IN; +ASCO500T11 PO; +CHOL1CAP47 PO; +IPRA0.00 IN; +LEVO-28 PO; +LINE1TAB6 PO; -PIPERACILLIN-TAZOB 3.375GM 100 ML IV SCH; +ZINC220C8 PO
[2022-01-08 01:23] LABS: Basophils # (auto) 0.1 10 ^3/uL (0-0.2); Basophils % (auto) 0.5 % (0.0-2.0); Eosinophils # (auto) 0 10 ^3/uL (0-0.8); Eosinophils % (auto) 0.3 % (0.0-7.0); Hematocrit 40.6 % (41.0-53.0); Hemoglobin 13.4 g/dL (13.5-17.5); Lymphocytes # (auto) 1.5 10 ^3/uL (0.4-5.4); Lymphocytes % (auto) 12.6 % (10.0-50.0); Mean Corpuscular Hemoglobin 28.6 pg (28.0-32.0); Mean Corpuscular Hgb Conc. 32.9 g/dL (32.0-36.0); Mean Corpuscular Volume 86.8 fL (80.0-100.0); Monocytes # (auto) 1.7 10 ^3/uL (0-1.3); Monocytes % (auto) 13.9 % (0.0-12.0); Neutrophils # (auto) 8.9 10 ^3/uL (1.6-8.6); Neutrophils % (auto) 72.7 % (37.0-80.0); Nucleated Red Blood Cells % 0.1 %; Red Blood Cells 4.67 10^6/uL (4.5-5.90); Red Cell Distribution Width 15.8 % (11.8-14.3); White Blood Cell 12.2 10^3/uL (4.4-10.8)
[2022-01-08] MEDS ORDERED: SODIUM CHLORIDE 0.9% 1,000 ML IV ONE ×2 (01:30→12:15)
[2022-01-08] MEDS ORDERED: ACETAMINOPHEN 500 MG TAB PO ONE ×2 (01:30→10:00)
[2022-01-08 01:46] LABS: Albumin 3.1 g/dL (3.4-5.0); BUN/Creatinine Ratio 5.7; Calcium 8.3 mg/dL (8.5-10.1); Magnesium 1.6 mg/dL (1.6-2.6); Potassium 3.2 mmol/L (3.5-5.1)
[2022-01-08 01:48] LABS: Bilirubin, Total 1.9 mg/dL (0.2-1.0); Total Protein 6.6 g/dL (6.4-8.2)
[2022-01-08] MEDS ORDERED: PIPERACILLIN-TAZOB 3.375GM 100 ML IV ONE (02:30)
[2022-01-08 02:56] LABS: Lactic Acid w/Reflex 2.2 mmol/L (0.4-2.0)
[2022-01-08] MEDS ORDERED: HYDROcodone-ACET 5/325MG TAB PO PRN (10:15)
[2022-01-08] MEDS ORDERED: MORPHINE SULFATE INJ 2 MG/ml SYRG IV PRN (10:15)
[2022-01-08] MEDS ORDERED: DEXTROSE (50%) 50ML SYRG IV PRN (10:15)
[2022-01-08] MEDS ORDERED: DOCUSATE SOD 100 MG CAP PO PRN (10:15)
[2022-01-08] MEDS ORDERED: ACETAMINOPHEN 325 MG TAB PO PRN (10:15)
[2022-01-08] MEDS ORDERED: POTASSIUM CHL 20MEQ/100ML 100 ML IV ONE (10:15)
[2022-01-08] MEDS ORDERED: NITROGLYCERIN 0.4 MG SL TAB SL PRN (10:15)
[2022-01-08] MEDS ORDERED: POTASSIUM CHL 20 Meq TABLET PO ONE (10:15)
[2022-01-08] MEDS: SODIUM CHLORIDE 0.9% 1,000 ML IV SCH ×2 (11:00→20:01)
[2022-01-08] MEDS ORDERED: NOREPINEPHRINE 8 MG/250ML KIT 250 ML IV ONE (11:56)
[2022-01-08] MEDS ORDERED: HYDROCORTISONE SOD SUCC 100 MG/2ML INJ VIAL IV ONE (12:00)
[2022-01-08] MEDS: NOREPINEPHRINE 8 MG/250ML KIT 250 ML IV SCH (12:00)
[2022-01-08] MEDS: ACCU-CHEK COMFORT CURVE STRIP VI SCH ×3 (12:15→23:57)
[2022-01-08] MEDS: InsuLIN REG 1unit/0.01ml Soln (100units/ml) SC SCH ×3 (12:27→23:59)
[2022-01-08] MEDS: ALBUMIN 25% 100 ML IV SCH ×2 (14:29→22:11)
[2022-01-08] MEDS: MAGNESIUM SULFATE 1GM/100ML 100 ML IV SCH (15:00)
[2022-01-08] MEDS: metroNIDAZOLE 500MG/100ML 100 ML IV SCH (16:15)
[2022-01-08 17:00] LABS: Urine Bacteria FEW /hpf (None Seen); Urine Blood Negative /uL (Negative); Urine Hyaline Cast FEW /lpf (0 - 2); Urine Specific Gravity 1.016 (1.001-1.035); Urine WBC 49 /hpf (0 - 3)
[2022-01-08 17:18] LABS: Protein, Urine 94.8 mg/dL (0.0-11.9)
[2022-01-09] VITALS (24 sets, daily range): BP systolic 117–164; BP diastolic 56–90
[2022-01-09 04:04] LABS: Basophils # (auto) 0 10 ^3/uL (0-0.2); Basophils % (auto) 0.2 % (0.0-2.0); Eosinophils # (auto) 0 10 ^3/uL (0-0.8); Hematocrit 32.1 % (41.0-53.0); Hemoglobin 10.9 g/dL (13.5-17.5); Lymphocytes # (auto) 0.5 10 ^3/uL (0.4-5.4); Lymphocytes % (auto) 3.4 % (10.0-50.0); Mean Corpuscular Hemoglobin 28.7 pg (28.0-32.0); Mean Corpuscular Volume 84.2 fL (80.0-100.0); Monocytes # (auto) 0.9 10 ^3/uL (0-1.3); Monocytes % (auto) 6.8 % (0.0-12.0); Neutrophils # (auto) 11.9 10 ^3/uL (1.6-8.6); Neutrophils % (auto) 89.6 % (37.0-80.0); Red Blood Cells 3.82 10^6/uL (4.5-5.90); Red Cell Distribution Width 15.6 % (11.8-14.3); White Blood Cell 13.3 10^3/uL (4.4-10.8)
[2022-01-09 04:06] LABS: BUN/Creatinine Ratio 9.3; Calcium 7.7 mg/dL (8.5-10.1); Potassium 3.2 mmol/L (3.5-5.1)
[2022-01-09] MEDS: InsuLIN REG 1unit/0.01ml Soln (100units/ml) SC SCH ×3 (06:00→18:06)
[2022-01-09] MEDS: ACCU-CHEK COMFORT CURVE STRIP VI SCH ×3 (06:09→18:06)
[2022-01-09] MEDS: metroNIDAZOLE 500MG/100ML 100 ML IV SCH ×3 (06:09→22:20)
[2022-01-09] MEDS: ALBUMIN 25% 100 ML IV SCH (06:11)
[2022-01-09] MEDS: LEVOTHYROXINE SODIUM 25 MCG TAB PO SCH (07:00)
[2022-01-09] MEDS: SODIUM CHLORIDE 0.9% 1,000 ML IV SCH ×2 (07:08→13:44)
[2022-01-09] MEDS ORDERED: POTASSIUM CHL 20MEQ/100ML 100 ML IV ONE ×2 (07:15→16:45)
[2022-01-09] MEDS: NOREPINEPHRINE 8 MG/250ML KIT 250 ML IV SCH (09:54)
[2022-01-09] MEDS: PANTOPRAZOLE 40 MG/10 ML VIAL INJ IV SCH (09:54)
[2022-01-09] MEDS ORDERED: PANTOPRAZOLE 40 MG TAB PO SCH (10:00)
[2022-01-09] MEDS: CEFTRIAXONE SODIUM 2 GM in D5W 5% 50 ML IV SCH (10:17)
[2022-01-09] MEDS ORDERED: HYDROCORTISONE SOD SUCC 100 MG/2ML INJ VIAL IV ONE (11:45)
[2022-01-09 14:12] LABS: Magnesium 1.9 mg/dL (1.6-2.6); Potassium 3.1 mmol/L (3.5-5.1)
[2022-01-10] VITALS (12 sets, daily range): BP systolic 137–191; BP diastolic 66–105
[2022-01-10] MEDS: ACCU-CHEK COMFORT CURVE STRIP VI SCH ×4 (00:10→18:00)
[2022-01-10] MEDS: InsuLIN REG 1unit/0.01ml Soln (100units/ml) SC SCH ×4 (00:11→17:56)
[2022-01-10] MEDS: SODIUM CHLORIDE 0.9% 1,000 ML IV SCH ×2 (02:15→12:15)
[2022-01-10 04:07] LABS: Basophils # (auto) 0 10 ^3/uL (0-0.2); Basophils % (auto) 0.2 % (0.0-2.0); Eosinophils # (auto) 0 10 ^3/uL (0-0.8); Eosinophils % (auto) 0.3 % (0.0-7.0); Hematocrit 31.8 % (41.0-53.0); Hemoglobin 10.9 g/dL (13.5-17.5); Lymphocytes # (auto) 0.7 10 ^3/uL (0.4-5.4); Lymphocytes % (auto) 6.6 % (10.0-50.0); Mean Corpuscular Hemoglobin 28.8 pg (28.0-32.0); Mean Corpuscular Hgb Conc. 34.3 g/dL (32.0-36.0); Mean Corpuscular Volume 83.8 fL (80.0-100.0); Monocytes # (auto) 0.7 10 ^3/uL (0-1.3); Monocytes % (auto) 6.9 % (0.0-12.0); Neutrophils # (auto) 8.8 10 ^3/uL (1.6-8.6); Nucleated Red Blood Cells % 0.1 %; Red Blood Cells 3.79 10^6/uL (4.5-5.90); White Blood Cell 10.3 10^3/uL (4.4-10.8)
[2022-01-10 04:18] LABS: Potassium 3.1 mmol/L (3.5-5.1)
[2022-01-10 04:24] LABS: BUN/Creatinine Ratio 14.1; Calcium 7.7 mg/dL (8.5-10.1)
[2022-01-10] MEDS ORDERED: hydrALAZINE HCL 20 MG/ML VL IV PRN (04:30)
[2022-01-10] MEDS ORDERED: BRIMONIDINE 0.2% OPTH Soln 5ml LEFTEYE SCH (06:00)
[2022-01-10] MEDS ORDERED: DORZOLAMIDE HCL 2% OPTH(EYE) SOL 10ML LEFTEYE SCH (06:00)
[2022-01-10] MEDS: metroNIDAZOLE 500MG/100ML 100 ML IV SCH (06:18)
[2022-01-10] MEDS: LEVOTHYROXINE SODIUM 25 MCG TAB PO SCH (06:58)
[2022-01-10] MEDS: PANTOPRAZOLE 40 MG/10 ML VIAL INJ IV SCH (10:00)
[2022-01-10] MEDS: CEFTRIAXONE SODIUM 2 GM in D5W 5% 50 ML IV SCH (10:00)
[2022-01-10] MEDS ORDERED: HYDROCORTISONE 10 MG TAB PO SCH (10:00)
[2022-01-10] MEDS ORDERED: HYDROCORTISONE PO SCH (14:45)
[2022-01-10] MEDS ORDERED: AMOX-277 PO (15:02)
[2022-01-10] MEDS ORDERED: BACDST PO (15:15)
[2022-01-10] MEDS ORDERED: LEVO112T4 PO (15:28)
[2022-01-10] MEDS ORDERED: PANT40T PO (15:30)
[2022-01-10] MEDS ORDERED: ROSU5TAB5 PO (15:30)
[2022-01-10] MEDS ORDERED: BENA20TA14 PO (15:30)
[2022-01-10] MEDS ORDERED: HYDR-4622 PO (15:31)
[2022-01-10] MEDS ORDERED: ALBUAER3 IN (15:31)
[2022-01-10] MEDS ORDERED: IPRA0.00 IN (15:31)
[2022-01-10] MEDS ORDERED: LEV50T GT (15:31)
[2022-01-10] MEDS: POTASSIUM CHL 20MEQ/100ML 100 ML IV SCH ×2 (16:22→19:34)
[2022-01-10] MEDS ORDERED: POTASSIUM CHL 20 Meq TABLET PO ONE (19:15)
== END 2022-01-10 21:55 | disposition home or self-care (01) | DRG 871 ==
LOC: ER 23:27 → TELE 01-08 10:24 → ICU WEST 01-08 23:49 → TELE-WESTW 01-10 07:36
PROVIDERS: ADMIT Internal Medicine; ATTEND Internal Medicine
DX: A41.9 Sepsis, unspecified organism (principal); G93.41 Metabolic encephalopathy; N17.0 Acute kidney failure with tubular necrosis; R65.21 Severe sepsis with septic shock; E27.40 Unspecified adrenocortical insufficiency; K57.32 Diverticulitis of large intestine without perforation or abscess without bleeding; D49.7 Neoplasm of unspecified behavior of endocrine glands and other parts of nervous system; E11.22 Type 2 diabetes mellitus with diabetic chronic kidney disease; E78.5 Hyperlipidemia, unspecified; E83.42 Hypomagnesemia; E87.6 Hypokalemia; E88.09 Other disorders of plasma-protein metabolism, not elsewhere classified; Z20.822 Contact with and (suspected) exposure to COVID-19; K21.9 Gastro-esophageal reflux disease without esophagitis; N18.30 Chronic kidney disease, stage 3 unspecified; K76.0 Fatty (change of) liver, not elsewhere classified; E03.9 Hypothyroidism, unspecified; H91.90 Unspecified hearing loss, unspecified ear; I12.9 Hypertensive chronic kidney disease with stage 1 through stage 4 chronic kidney disease, or unspecified chronic kidney disease; I25.10 Atherosclerotic heart disease of native coronary artery without angina pectoris; Z87.11 Personal history of peptic ulcer disease; Z87.442 Personal history of urinary calculi; Z86.79 Personal history of other diseases of the circulatory system
CPT/HCPCS: 36415; 71045; 71250; 74176; 76775; 80048; 80053; 81001; 82306; 82570; 82962; 83605; 83735; 83880; 83970; 84100; 84132; 84156; 84300; 84439; 84443; 84484; 85025; 87040; 87081; 93005; 96361; 96365; 96366; 96367; 96375; C9113; G0378; J0696; J1815; J2543; J3480; J3490; J7060; P9047